=== PATIENT | female | born 1985 ===

== ENCOUNTER 2022-03-24 08:01 | Outpatient (CLI) | payer BC ==
[2022-03-24 20:27] LABS: SARS-CoV-2 PCR by NAA Not Detected (NotDetected)
== END 2022-03-24 08:02 | disposition home or self-care (01) ==
LOC: CSHLAB 08:01
PROVIDERS: ATTEND Internal Medicine Gastroenterology
DX: Z20.822 Contact with and (suspected) exposure to COVID-19 (principal); R10.9 Unspecified abdominal pain
CPT/HCPCS: U0003; U0005

== ENCOUNTER → 2022-03-27 | Day surgery (SDC) | payer BC ==
[2022-03-25 13:35] VITALS: BMI 34.0
[~2022-03-27] MED LIST: Fentanyl 100 MCG/2 ML VIAL ONE; Lidocaine 1% MPF 2 ML VIAL ONE; Lidocaine 2% MPF 10 ML AMP (For Epidural Use) ONE; PROPOFOL 20 ML ONE
== END ==
LOC: CSHSDC 09:21
PROVIDERS: ATTEND Internal Medicine Gastroenterology
PROC: 0DB68ZZ Excision of Stomach, Via Natural or Artificial Opening Endoscopic (ICD-10-PCS; principal; 2022-03-27)
DX: K21.00 Gastro-esophageal reflux disease with esophagitis, without bleeding (principal); K31.7 Polyp of stomach and duodenum; K44.9 Diaphragmatic hernia without obstruction or gangrene; E66.9 Obesity, unspecified; F41.9 Anxiety disorder, unspecified; F32.A Depression, unspecified
CPT/HCPCS: 88305; J2704; J3010